=== PATIENT | male | born 1960 | race Caucasian/White ===

== ENCOUNTER 2019-10-02 11:15 | Day surgery (SDC) | payer BC ==
[~2019-10-02 11:15] MED LIST: Lactated Ringers 1,000 ML IV SCH; Sodium Chloride 0.9% 10 ML Syringe FLUSH PRN
[2019-10-02] MEDS ORDERED: Propofol 200 MG/20 ML SDV ONE ×2 (12:07→13:57)
[2019-10-02] MEDS ORDERED: fentaNYL 100 MCG/2 ML SDV ONE (12:07)
--- NOTE | 2019-10-02 20:26 | OR ---
DATE OF SURGERY: 10/02/2019 REFERRING PROVIDER: Al Agudelo MD. PRE-OPERATIVE DIAGNOSES: Colon cancer screening given his history of colon polyps. Last colonoscopy was 5 years ago and revealed 3 adenomas. There is also positive family history of polyps in brother. POST-OPERATIVE DIAGNOSES: 1. Five tiny polyps removed all using cold forceps. a. A 2-mm polyp at the entry to cecum. b. A 2-mm polyp at 110 cm. c. A 2-mm polyp at 75 cm. d. A 2-mm polyp at 40 cm. e. A 3-mm polyp at 15 cm. 2. Mild hemorrhoids. 3. Normal distal ileum. PROCEDURE: Colonoscopy with polypectomy x5 using cold forceps. SURGEON: Sanjeev Steward M.D. ANESTHESIA: Monitored anesthesia care. BOWEL PREP: Fair to good. Lester is a 59-year-old male was brought to the endoscopy suite after discussing risks and benefits of the procedure. Informed consent was obtained for conscious sedation and colonoscopy with or without biopsy and/or polypectomy. We also discussed possibility of missed lesions. Pre-procedure exam was unremarkable. IV, oxygen, and monitors were placed. The patient was placed in the left lateral decubitus position. Sedation was administered and a digital rectal exam was performed which was unremarkable. Colonoscope was passed into the rectum and slowly advanced all the way to the cecum. Cecum was viewed and photographed. Ileocecal valve was intubated and distal ileum was normal in appearance. The colonoscope was slowly withdrawn and the mucosa was closed observed in a direct circumferential manner. The ascending colon was remarkable for 2 mm polyp at entry to cecum as well as 2 mm polyp at 110 cm, both removed using cold forceps. The transverse colon was remarkable for 2 mm polyp at 75 cm, removed using cold forceps. The descending colon was remarkable for 2 mm polyp at 40 cm, removed using cold forceps. The sigmoid colon revealed 3 mm polyp at 15 cm, removed using cold forceps. Retroflexion was performed and rectal mucosa was remarkable for some mild hemorrhoids. Scope was removed. The patient tolerated the procedure well. The patient was monitored until that baseline status. Discharge instructions were reviewed and the patient was discharged in good condition. COMPLICATIONS: None. TOTAL TIME: 31 minutes. ESTIMATED BLOOD LOSS: About 1 mL. RECOMMENDATIONS/FOLLOW-UP: We will await results of path report to determine ideal followup interval. I would like to kindly thank Al Agudelo for this referral. DMB: 10/02/2019 14:44:03 MODL: 10/02/2019 20:20:37 /[id number] DAVID
== END 2019-10-02 15:33 | disposition home or self-care (01) ==
LOC: VM.SDS 11:15
PROVIDERS: ATTEND Family Medicine
DX: Z12.11 Encounter for screening for malignant neoplasm of colon (principal); D12.0 Benign neoplasm of cecum; D12.4 Benign neoplasm of descending colon; D12.3 Benign neoplasm of transverse colon; K63.5 Polyp of colon; K64.9 Unspecified hemorrhoids; E78.5 Hyperlipidemia, unspecified; Z86.010 Personal history of colon polyps; Z83.71 Family history of colonic polyps; Z79.82 Long term (current) use of aspirin; Z79.2 Long term (current) use of antibiotics; Z79.899 Other long term (current) drug therapy
CPT/HCPCS: 45380; J2704; J3010; J7120

== ENCOUNTER 2024-02-01 09:39 | Day surgery (SDC) | payer OTHER ==
[~2024-02-01 09:39] MED LIST changes: -Sodium Chloride 0.9% 10 ML Syringe FLUSH PRN
[2024-02-01] MEDS: Lactated Ringers 1,000 ML IV SCH (09:50)
[2024-02-01] MEDS ORDERED: Midazolam 1 MG/ML 2 ML SDV ONE (12:00)
[2024-02-01] MEDS ORDERED: Propofol 200 MG/20 ML SDV ONE (12:00)
[2024-02-01] MEDS ORDERED: fentaNYL 100 MCG/2 ML SDV ONE (12:01)
== END 2024-02-01 14:08 | disposition home or self-care (01) ==
LOC: VM.SDS 09:39
PROVIDERS: ATTEND Student in an Organized Health Care Education/Training Program
DX: Z12.11 Encounter for screening for malignant neoplasm of colon (principal); D12.3 Benign neoplasm of transverse colon; Z86.010 Personal history of colon polyps; E78.5 Hyperlipidemia, unspecified
CPT/HCPCS: 00811; J2250; J2704; J3010; J7120